=== PATIENT | male | born 1995 | race Caucasian/White ===

== ENCOUNTER 2017-08-14 13:56 | Emergency (ER) | payer BC ==
[2017-08-14 15:56] VITALS: BP 153/91
--- NOTE | 2017-08-14 16:09 | UC ---
Respiratory Complaint HPI - HPI Summary HPI Summary: 1 week of uri, some chills mostly unresolved nasal congestion but no sinus pain or pressure - History of Current Complaint Chief Complaint: UCRespiratory Stated Complaint: ACHY,COLD SXS Time Seen by Provider: 08/14/17 16:01 Hx Obtained From: Patient Onset/Duration: Gradual Onset, Lasting Days - 7, Still Present Timing: Constant Severity Initially: Moderate Severity Currently: Moderate Aggravating Factors: Nothing Alleviating Factors: Nothing - trying cold and sinus medicine Associated Signs And Symptoms: Positive: URI, Nasal Congestion. Negative: Sinus Discomfort - Allergies/Home Medications Allergies/Adverse Reactions: Allergies Allergy/AdvReac Type Severity Reaction Status Date / Time No Known Allergies Allergy Verified 08/14/17 15:47 Home Medications: Home Medications Phenylephrine-Chlorpheniramine [[place] Plus Cold & 5-2-10-325 mg] 1 cap PO PRN 08/14/17 [History] buPROPion TAB* [Wellbutrin TAB*] 300 mg PO DAILY 08/14/17 [History Confirmed ] busPIRone TAB* [Buspar TAB*] 5 mg PO BID PRN 08/14/17 [History Confirmed ] PMH/Surg Hx/FS Hx/Imm Hx Previously Healthy: Yes Other History Of: Negative For: HIV - Surgical History Surgical History: Yes Surgery Procedure, Year, and Place: b/l feet, r elbow, - Family History Known Family History: Positive: None, Hypertension, Other - gall bladder [place] - Social History 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: 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-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, 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 Lives: With Family Alcohol Use: None Substance Use Type: Marijuana Substance Use Comment - Amount & Last Used: less than a gram every day; last use was 01/12/16 Smoking Status (MU): Never Smoked Tobacco - Immunization History Most Recent Tetanus Shot: utd Hx Tetanus, Diphtheria Vaccination: Yes Vaccination Up to Date: Yes Review of Systems Constitutional: Chills, Fatigue Skin: Negative Eyes: Negative ENT: Nasal Discharge Respiratory: Negative Cardiovascular: Negative Gastrointestinal: Negative Genitourinary: Negative Motor: Negative Neurovascular: Negative Musculoskeletal: Negative Neurological: Negative Psychological: Negative Is Patient Immunocompromised?: No All Other Systems Reviewed And Are Negative: Yes Physical Exam Triage Information Reviewed: Yes Appearance: No Pain Distress, Well-Nourished, Ill-Appearing - mild Vital Signs: Initial Vital Signs Temp 98.3 F 08/14/17 15:50 Pulse 96 08/14/17 15:50 Resp 18 08/14/17 15:50 BP 153/91 08/14/17 15:50 Pulse Ox 98 08/14/17 15:50 Vital Signs Reviewed: Yes Eye Exam: Normal Eyes: Positive: Conjunctiva Clear ENT Exam: Normal ENT: Positive: Normal ENT inspection, Hearing grossly normal, Pharynx normal, Nasal congestion, Nasal drainage, TMs normal, Uvula midline. Negative: Tonsillar swelling, Tonsillar exudate, Trismus, Muffled voice, Hoarse voice, Dental tenderness, Sinus tenderness Dental Exam: Normal Neck exam: Normal Neck: Positive: Supple, Nontender, No Lymphadenopathy Respiratory Exam: Normal Respiratory: Positive: Chest non-tender, Lungs clear, Normal breath sounds, No respiratory distress, No accessory muscle use Cardiovascular Exam: Normal Cardiovascular: Positive: RRR, No Murmur, Pulses Normal, Brisk Capillary Refill Musculoskeletal Exam: Normal Musculoskeletal: Positive: Strength Intact, ROM Intact, No Edema Neurological Exam: Normal Neurological: Positive: Alert, Muscle Tone Normal Psychological Exam: Normal Skin Exam: Normal UC Diagnostic Evaluation - Laboratory O2 Sat by Pulse Oximetry: 98 Respiratory Course/Dx - Course Course Of Treatment: Afrin nasal spray for quick releif of symptoms and flonase for longer term use - Differential Dx/Diagnosis Provider Diagnoses: Rhinnosinusitis, high blood pressure without diagnosis of hypertension Discharge - Discharge Plan Condition: Stable Disposition: HOME Prescriptions: Fluticasone NASAL SPRAY 50MCG* [Flonase NASAL SPRAY 50MCG*] 2 spray BOTH NARES DAILY #1 btl Patient Education Materials: Oxymetazoline (Into the nose), Upper Respiratory Infection (ED), Rhinosinusitis (ED), Hypertension (ED), How to Use Nasal [place] ( ED) Referrals: Param Jean MD [Primary Care Provider] - 2 Weeks
== END 2017-08-14 16:19 | disposition home or self-care (01) ==
LOC: UCCORT 13:56
DX: J32.9 Chronic sinusitis, unspecified (principal); R03.0 Elevated blood-pressure reading, without diagnosis of hypertension
CPT/HCPCS: 99212; G0463

== ENCOUNTER 2017-12-28 07:50 | Emergency (ER) | payer BC ==
--- OUTSIDE RECORDS SUMMARY | 2017-12-28 08:03 | XMS REPORT ---
:1995 External Reference #:[id number] Author Organization [facility] Address [address], [address] [place] [address] Phone [phone] Care Team Providers Name Role Phone Diane Jackson, BRIGETTE, SANIA, Ibliza Care Team Information Awning Spreader Unavailable Diane Jackson, BRIGETTE, SANIA, Ibclc Primary Care Physician Unavailable Payers Type Date Identification Numbers Payment Provider Subscriber Commercial Policy Number: [id number] Tammy Thorpe PayID: [id number] [address] [address] [place] [address] Problems Date Description Provider Status Onset: 09/09/2003 Fall from one level to another Active Onset: 09/09/2003 Closed supracondylar fracture of humerus Active Family History Date Family Member(s) Problem(s) Comments Father No Current Problems Mother No Current Problems Paternal Grandfather due to Cancer () - gallbladder Paternal Grandmother Unknown : (age Maternal Grandfather due to Lung 59 Years) Cancer Maternal Grandmother Unknown Social History Type Date Description Comments Lives With Parents Diet Patient follows no dietary avoids milk due to GI issues restrictions 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[employer] - [employer] Cigarette Use Never Smoked Cigarettes ETOH Use Denies alcohol use Smoking Patient is a current smoker, smokes [place] 2-3x a day every day Allergies, Adverse Reactions, Alerts Date Description Reaction Status Severity Comments 01/31/2017 NKDA active Medications Medication Date Status Form Strength Qnty SIG Indications Ordering Provider Bupropion HCL 11/21/ Active Tablets ER 150mg 60tabs 1 by F41.9 Diane Jackson, ER (SR) 2018 12HR mouth PNP-BC, ELECTRICAL SYSTEMS DESIGN ENGINEER, twice a Ibclc day Buspirone HCL 06/09/ Active Tablets 5mg 60tabs take 1-2 F41.9 Héctor 2017 tablet Clune, ELECTRICAL SYSTEMS DESIGN ENGINEER by mouth three times a day Bupropion HCL 06/07/ Hx Tablets ER 300mg 30tabs 1 by F41.9 Diane Jackson , ER (XL) 2017 - 24HR mouth PNP-BC, ELECTRICAL SYSTEMS DESIGN ENGINEER, 11/21/ every Ibclc 2018 day Wellbutrin XL 03/29/ Hx Tablets ER 150mg 60tabs 1 by F41.9 Diane Jackson , 2017 - 24HR mouth PNP-BC, ELECTRICAL SYSTEMS DESIGN ENGINEER, 06/07/ every Ibclc 2017 day Cephalexin 01/02/ Hx Tablets 250mg 10tabs take one Gordo Moraes, 2007 - tablet MD 01/31/ po bid x 2016 5 days. Sertraline / Hx Tablets 25mg 1 by Unknown HCL 0000 - mouth 03/29/ every 2016 day Acidophilus / Hx Capsules 100mg 1 by Unknown Probiotic 0000 - mouth 07/21/ twice a 2017 day x 2 month Ibuprofen / Hx Capsules 200mg as Unknown 0000 - needed 2017 Immunizations CPT Code Status Date Vaccine Lot # [id number] Given 06/09/2017 Influenza Virus Vaccine, Quadrivalent, Slit Virus, [id number] Im Use [id number] Given 03/27/2013 Tdap injection U-HPV Given 11/15/2011 HPV,Unspecified U-HPV Given 07/05/2011 HPV,Unspecified U-HPV Given 04/22/2011 HPV,Unspecified Vital Signs Date Vital Result Comment 12/04/2017 BP Systolic 118 mmHg BP Diastolic 80 mmHg Body Temperature 98.0 F Heart Rate 88 /min Respiratory Rate 17 /min Height 69 inches 5'9" Weight 163.00 lb BMI (Body Mass Index) 24.1 kg/m2 BSA (Body Surface Area) 1.89 m2 [place] body weight in kilograms 73 O2 % BldC Oximetry 97 % 11/21/2017 BP Systolic 122 mmHg BP Diastolic 74 mmHg Body Temperature 98.1 F Heart Rate 108 /min Respiratory Rate 17 /min Height 69 inches 5'9" Weight 166.00 lb BMI (Body Mass Index) 24.5 kg/m2 BSA (Body Surface Area) 1.91 m2 [place] body weight in kilograms 73 O2 % BldC Oximetry 96 % 10/23/2017 BP Systolic Sitting Left Arm 118 mmHg BP Diastolic Sitting Left Arm 72 mmHg Height 69 inches 5'9" Weight 165.00 lb BMI (Body Mass Index) 24.4 kg/m2 BSA (Body Surface Area) 1.90 m2 [place] body weight in kilograms 73 09/07/2017 BP Systolic Sitting Left Arm 114 mmHg BP Diastolic Sitting Left Arm 74 mmHg Heart Rate 88 /min Respiratory Rate 18 /min Height 69 inches 5'9" Weight 164.50 lb BMI (Body Mass Index) 24.3 kg/m2 BSA (Body Surface Area) 1.90 m2 [place] body weight in kilograms 73 07/21/2017 BP Systolic Sitting Left Arm 118 mmHg BP Diastolic Sitting Left Arm 76 mmHg Heart Rate 80 /min Respiratory Rate 18 /min Height 69 inches 5'9" Weight 165.00 lb BMI (Body Mass Index) 24.4 kg/m2 BSA (Body Surface Area) 1.90 m2 [place] body weight in kilograms 73 06/09/2017 BP Systolic Sitting Left Arm 126 mmHg BP Diastolic Sitting Left Arm 76 mmHg Heart Rate 88 /min Respiratory Rate 18 /min Height 69 inches 5'9" Weight 171.38 lb BMI (Body Mass Index) 25.3 kg/m2 BSA (Body Surface Area) 1.93 m2 [place] body weight in kilograms 73 05/01/2017 BP Systolic 116 mmHg BP Diastolic 74 mmHg Heart Rate 79 /min Height 69 inches 5'9" Weight 180.00 lb BMI (Body Mass Index) 26.6 kg/m2 BSA (Body Surface Area) 1.98 m2 [place] body weight in kilograms 73 03/29/2017 BP Systolic 140 mmHg BP Diastolic 84 mmHg Body Temperature 97.1 F Heart Rate 67 /min Height 69 inches 5'9" Weight 178.00 lb BMI (Body Mass Index) 26.3 kg/m2 BSA (Body Surface Area) 1.97 m2 [place] body weight in kilograms 73 01/31/2017 BP Systolic Sitting Left Arm 117 mmHg BP Diastolic Sitting Left Arm 78 mmHg Heart Rate 66 /min Height 69 inches 5'9" Weight 177.00 lb BMI (Body Mass Index) 26.1 kg/m2 BSA (Body Surface Area) 1.96 m2 [place] body weight in kilograms 73 05/18/2009 Height 60 inches 5'0" Weight 117.00 lb 04/30/2008 Height 58 inches 4'10" Weight 114.00 lb 11/14/2007 Height 57 inches 4'9" Weight 110.00 lb 08/07/2007 Height 56 inches 4'8" Weight 108.00 lb BSA (Body Surface Area) 1.37 m2 Height Percentile 12 % Weight Percentile 76th 07/16/2007 Height 56 inches 4'8" Weight 108.00 lb Results Test Date Test Result H/L Range Note HIV Screen 4TH 09/07/2017 HIV Screen 4th Non Reactive Non Reactive 1, 2 Gen Reflex Generation wRfx Chlamydia/GC Mer[place], 09/07/2017 Chlamydia Negative Negative 1 Urine Trachomatis,Ur -PCR Neisseria Gonorrhoeae,Ur -PCR Negative Negative 1, 3 Comprehensive Metabolic Panel 01/09/2017 Glucose 118 mg/dL High 74-106 4 BUN 8 mg/dL 7-18 4 Creatinine 1.1 mg/dL 0.6-1.3 4 Glom Filtration Rate, Estimate >60 mL/min >60 4 If >60 mL/min >60 4, 5 BUN/Creat 7.2 ratio 4 Sodium 141 mmol/L 136-145 4 Potassium 3.6 mmol/L 3.5-5.1 4 Chloride 107 mmol/L 98-107 4 Carbon Dioxide 27 mmol/L 21-32 4 Anion Gap 7 mEq/L Low 8-16 4 Calcium 9.6 mg/dL 8.5-10.1 4 Total Protein 8.0 g/dL 6.4-8.2 4 Albumin 4.5 g/dL 3.4-5.0 4 Globulin 3.5 g/dL 1.9-4.3 4 Alb/Glob 1.3 ratio 4 Bilirubin,Total 0.8 mg/dL 0.2-1.0 4 Sgot/Ast 21 U/L 15-37 4 SGPT/Alt 50 U/L 12-78 4 Alkaline Phosphatase 57 U/L 45-117 4 Laboratory test finding 01/09/2017 C-Reactive Protein,Quant 6.2 mg/L High <3.0 4 CBS W/Automated Diff 01/09/2017 White Blood Count 8.2 K/uL 3.4-10.5 4 Red Blood Count 5.27 M/uL 4.20-5.80 4 Hemoglobin 15.5 gm/dL 12.8-17.0 4 Hematocrit 46.9 % 38.0-48.0 4 Mean Cell Volume 89.0 fl 80.0-96.0 4 Mean Corpuscular HGB 29.4 pg 27.0-33.0 4 Mean Corpuscular HGB Conc 33.0 g/dL 31.7-36.0 4 Platelet Count 295 K/uL 150-400 4 Red Cell Distri Width SD 40.9 fl 36-51 4 Red Cell Distri Width %CV 12.7 % 11.6-15.8 4 Mean Platelet Volume 9.3 fL 6.6-10.6 4 Neut% 47.2 % 33.0-73.0 4 Lymph % 36.5 % 20.0-42.0 4 [place] % 12.5 % High 0.0-10.0 4 Eo% 3.4 % 0.0-6.6 4 Bas% 0.4 % 0.0-1.1 4 Neut# 3.89 K/uL 1.8-7.0 4 Lymph # 3.01 K/uL 1.0-4.0 4 [place] # 1.03 K/uL High 0.0-0.8 4 Eos # 0.28 K/uL 0.0-0.5 4 Baso # 0.03 K/uL 0.0-0.1 4 Laboratory test finding 01/08/2017 C-Reactive Protein,Quant 15.1 mg/L High <3.0 4 Sedimentation Rate 3 mm/hr 0-15 4, 6 Laboratory test 01/07/2017 C-Reactive Protein,Quant 9.3 mg/L High <3.0 4 finding Laboratory test 01/07/2017 Sedimentation Rate 2 mm/hr 0-15 4, 7 finding 1 Z00.00 2 Performed at: RN - [facility] [address] [id number] Square Cutter: Dolly Colon MD, Phone: [phone] 3 A negative result for either C. trachomatis and/or N. gonorrhoeae does not preclued an infection because results are dependent on adequate specimen collection, absence of inhibitors, and sufficient DNA to be detected. 4 CAT BITE R HAND, LYMPHANGITIS 5 Note: Persistent reduction for 3 months or more in an eGFR <60 mL/min/1.73 m2 defines CKD. Patients with eGFR values >/=60 mL/min/1.73 m2 may also have CKD if evidence of persistent proteinuria is present. The original MDRD equation for estimated GFR is not valid for patients less than 18 years of age. Additional information may be found at www.kdoqi.org. 6 Method: Sediplast Modified Westergren 7 Method: Sediplast Modified Westergren Procedures Date CPT Code Description Status 12/04/2017 12895 Brief Emotional/Behav Assessment W/ Scoring Doc Per Completed Standard Inst 11/21/2017 76559 Brief Emotional/Behav Assessment W/ Scoring Doc Per Completed Standard Inst 10/23/2017 45093 Brief Emotional/Behav Assessment W/ Scoring Doc Per Completed Standard Inst 01/31/2017 63788 X-Ray Knee Complete W/Obliques & Tunnel And/Or Completed Standing Views 01/31/2017 94820 Radiology, Distal Femur--Knee 1 Or 2 Views Completed 01/31/2017 05290 Radiology, Distal Femur--Knee 1 Or 2 Views Completed 11/19/2007 27501 Reconstruction Post Tibial Tendon W/Excision Accessory Completed Navicular 08/13/2007 44709 Reconstruction Post Tibial Tendon W/Excision Accessory Completed Navicular Encounters Type Date Location Provider CPT E/M Dx Office Visit 12/04/2017 1:00p Family Medicine BRIGETTE Sanchez, 55099 F41.9 ELECTRICAL SYSTEMS DESIGN ENGINEER, Ibclc F33.1 Office Visit 11/21/2017 11:30a Family Medicine BRIGETTE Sanchez, ELECTRICAL SYSTEMS DESIGN ENGINEER, 26874 F41.9 Ibclc Office Visit 10/23/2017 1:15p Family Medicine BRIGETTE Sanchez, ELECTRICAL SYSTEMS DESIGN ENGINEER, 92615 F33.1 Ibclc F41.9 Office Visit 09/07/2017 8:30a Family Medicine SANIA Tan 92696 Z00.00 F41.9 Office Visit 07/21/2017 11:15a Family Medicine SANIA Tan 26335 F41.9 Office Visit 06/09/2017 2:00p Family Medicine SANIA Tan 21189 F41.9 Z23 Office Visit 05/01/2017 11:15a Family Medicine BRIGETTE Sanchez, 40839 F41.9 ELECTRICAL SYSTEMS DESIGN ENGINEER, Ibclc Office Visit 03/29/2017 11:00a [facility] BRIGETTE Sanchez, 66547 F41.9 ELECTRICAL SYSTEMS DESIGN ENGINEER, Ibclc Office Visit 01/31/2017 10:30a [facility] Office Patricio Hinkle, 12351 M25.561 Baron Plan of Care Future Appointment(s):03/12/2018 1:00 pm - BRIGETTE Sanchez, ELECTRICAL SYSTEMS DESIGN ENGINEER, Ibclc at [facility]
[2017-12-28 08:13] VITALS: BP 139/84
--- NOTE | 2017-12-28 08:55 | UC ---
Abdominal Pain Male HPI - HPI Summary HPI Summary: 22 yo male with the onset of epigastric abd pain and vomiting last PM heartburn kept him up last pm no f/c no URI symptoms no NSAID use No etoh states he feels stressed - History of Current Complaint Chief Complaint: UCGI Stated Complaint: HEARTBURN, STOMACH COMPLAINT Time Seen by Provider: 12/28/17 08:47 Hx Obtained From: Patient Onset/Duration: Sudden Onset, Lasting Hours Timing: Constant Severity Initially: Moderate Severity Currently: Mild Pain Intensity: 4 Pain Scale Used: 0-10 Numeric Location: Epigastric Character: Other - burning Aggravating Factor(s): Nothing Alleviating Factor(s): Nothing Associated Signs And Symptoms: Positive: Nausea, Vomiting, Diarrhea - daily - had colonscopy a yr ago - Allergies/Home Medications Allergies/Adverse Reactions: Allergies Allergy/AdvReac Type Severity Reaction Status Date / Time No Known Allergies Allergy Verified 12/28/17 08:06 PMH/Surg Hx/FS Hx/Imm Hx Previously Healthy: Yes Psychological History: Anxiety Other History Of: Negative For: HIV - Surgical History Surgical History: Yes Surgery Procedure, Year, and Place: b/l feet, r elbow, - Family History Known Family History: Positive: Hypertension, Other - gall bladder [place] - Social History Alcohol Use: None Substance Use Type: Marijuana Substance Use Comment - Amount & Last Used: less than a gram every day; last use was last night Smoking Status (MU): Never Smoked Tobacco - Immunization History Most Recent Tetanus Shot: utd Hx Tetanus, Diphtheria Vaccination: Yes Vaccination Up to Date: Yes Review of Systems Cardiovascular: Chest Pain - sscp (burning) during the night Gastrointestinal: Abdominal Pain, Vomiting, Nausea Motor: Negative Neurovascular: Negative Musculoskeletal: Negative Neurological: Negative Psychological: Negative Is Patient Immunocompromised?: No All Other Systems Reviewed And Are Negative: Yes Physical Exam Triage Information Reviewed: Yes Appearance: Well-Appearing, No Pain Distress, Well-Nourished, Thin Vital Signs: Initial Vital Signs Temp 100 F 12/28/17 08:07 Pulse 86 12/28/17 08:07 Resp 16 12/28/17 08:07 BP 139/84 12/28/17 08:07 Pulse Ox 100 12/28/17 08:07 Eyes: Positive: Conjunctiva Clear ENT: Positive: Hearing grossly normal, Other - moist MM. Negative: Nasal congestion, Nasal drainage, Trismus, Muffled voice, Hoarse voice, Dental tenderness Dental Exam: Normal Neck: Positive: Supple, Nontender, No Lymphadenopathy Respiratory: Positive: Lungs clear, Normal breath sounds, No respiratory distress, No accessory muscle use Cardiovascular: Positive: RRR, No Murmur Abdomen Description: Positive: Nontender, No Organomegaly, Soft. Negative: CVA Tenderness (R), CVA Tenderness (L) Bowel Sounds: Positive: Present Musculoskeletal: Positive: ROM Intact, No Edema Neurological: Positive: Alert Psychological Exam: Normal Psychological: Positive: Decreased Age Appropriate Behavior Abd Pain Male Course/Dx - Differential Dx/Clinical Impression Provider Diagnoses: acute gastritis Discharge - Sign-Out/Discharge Documenting (check all that apply): Discharge - Discharge Plan Condition: Stable Disposition: HOME Prescriptions: Omeprazole 20 mg PO DAILY #14 capsule. Ondansetron TAB* [Zofran Tab*] 4 mg PO Q6H PRN #10 tab PRN Reason: Nausea Patient Education Materials: Gastritis (ED) Forms: *School Release Referrals: Diane Jackson NP [Primary Care Provider] - As Soon As Possible Additional Instructions: recheck for new or worsening symptoms see your MD first available appt - Billing Disposition and Condition Condition: STABLE Disposition: HOME
== END 2017-12-28 09:06 | disposition home or self-care (01) ==
LOC: UCCORT 07:50
DX: K29.00 Acute gastritis without bleeding (principal)
CPT/HCPCS: 99212; G0463

== ENCOUNTER 2018-02-12 09:13 | Emergency (ER) | payer BC ==
[2018-02-12 09:38] VITALS: BP 125/81
--- NOTE | 2018-02-12 10:17 | UC ---
Throat Pain/Nasal Liu HPI - HPI Summary HPI Summary: 22 yo gentleman c/o scratchy throat, seemed like allergy sx a little over a week. Last couple days worse, yesterday noted sores on back of throat, prompting visit today. Without yamileth fever. + tired. No rash. Minimal cough , minimal congestion. No abd pain / discomfort. No b/b sx reported. No known hx mononucleosis. + Canker sores earlier in the week, resolved now. - History of Current Complaint Chief Complaint: UCGeneralIllness Stated Complaint: ST Time Seen by Provider: 02/12/18 09:52 Hx Obtained From: Patient Pain Intensity: 6 - Allergies/Home Medications Allergies/Adverse Reactions: Allergies Allergy/AdvReac Type Severity Reaction Status Date / Time No Known Allergies Allergy Verified 02/12/18 09:38 Home Medications: Home Medications Bupropion XL* [Wellbutrin XL *] 300 mg PO DAILY 02/12/18 [History Confirmed ] FLUoxetine CAP* [PROzac CAP*] 20 mg PO DAILY 02/12/18 [History Confirmed ] risperiDONE [Risperidone] 0.25 mg PO BID 02/12/18 [History Confirmed 02/12/18] PMH/Surg Hx/FS Hx/Imm Hx Previously Healthy: Yes Other History Of: Negative For: HIV - Surgical History Surgical History: Yes Surgery Procedure, Year, and Place: b/l feet, r elbow, - Family History Known Family History: Positive: None, Hypertension, Other - gall bladder [place] - Social History Alcohol Use: None Substance Use Type: Marijuana Substance Use Comment - Amount & Last Used: less than a gram every day; last use was last night Smoking Status (MU): Never Smoked Tobacco - Immunization History Most Recent Tetanus Shot: utd Hx Tetanus, Diphtheria Vaccination: Yes Vaccination Up to Date: Yes Review of Systems Constitutional: Other - see hpi Skin: Negative Eyes: Negative ENT: Sore Throat Respiratory: Negative Cardiovascular: Negative Gastrointestinal: Negative Genitourinary: Negative Motor: Negative Neurovascular: Negative Musculoskeletal: Negative Neurological: Negative Psychological: Negative Is Patient Immunocompromised?: No All Other Systems Reviewed And Are Negative: Yes Physical Exam Triage Information Reviewed: Yes Appearance: Well-Nourished - sitting up, conversing in full sentances, without difficulty Vital Signs: Initial Vital Signs Temp 98.7 F 02/12/18 09:33 Pulse 86 02/12/18 09:33 Resp 18 02/12/18 09:33 BP 125/81 02/12/18 09:33 Pulse Ox 100 02/12/18 09:33 Vital Signs Reviewed: Yes Eye Exam: Normal ENT: Positive: Pharyngeal erythema - + post pharyngeal sores, no yamileth exudates. + post pharyngeal redness. Uvula midline. Airway patent, no stridor. Tongue unremarkable., TM dull - dull au tm Neck exam: Normal Neck: Positive: Supple, Nontender Respiratory Exam: Normal Respiratory: Positive: Chest non-tender, Lungs clear, Normal breath sounds, No respiratory distress Cardiovascular Exam: Normal Cardiovascular: Positive: RRR, No Murmur, Pulses Normal, Brisk Capillary Refill Abdominal Exam: Normal Abdomen Description: Positive: Nontender, No Organomegaly Bowel Sounds: Positive: Present Musculoskeletal Exam: Normal - gait steady, moves x 4 ext Neurological Exam: Normal - grossly nonfocal Psychological Exam: Normal - conversing easily and appropriately Skin Exam: Normal - non-diaphoretic. no visible or reported rash Throat Pain/Nasal Course/Dx - Course Course Of Treatment: RST neg. Likely viral syndrome. Will check re possible mononucleosis. Pt agrees. Recommend f/u if possible with pcp. Questions as posed answered to the best of my ability. - Differential Dx/Diagnosis Provider Diagnoses: Pharyngitis Discharge - Sign-Out/Discharge Documenting (check all that apply): Discharge/Admit/Transfer - Discharge Plan Condition: Stable Disposition: HOME Patient Education Materials: Pharyngitis (ED), Viral Syndrome (ED) Referrals: Diane Jackson NP [Primary Care Provider] - Additional Instructions: Drink plenty of water. Follow up with your primary care phyisician next couple weeks for recheck. Seek medical attention for worse or new problems in the meantime. - Billing Disposition and Condition Condition: STABLE Disposition: HOME
[2018-02-12 13:44] LABS: ABS Basophils 0 10^3/ul (0-0.2); ABS Eosinophils 0.2 10^3/ul (0-0.6); ABS Lymphocytes 1.4 10^3/ul (1.0-4.8); ABS Monocytes 0.6 10^3/ul (0-0.8); ABS Neutrophils 2.9 10^3/ul (1.5-7.7); ABS Nucleated RBC 0 10^3/ul; Eosinophil % 4.9 % (0-6); Hematocrit 44 % (42-52); Hemoglobin 14.7 g/dl (14.0-18.0); Lymphocyte % 27.2 % (25-47); Mean Corpuscular HGB Conc 33 g/dl (31-36); Mean Corpuscular Hemoglobin 30 pg (27-31); Mean Corpuscular Volume 89 fL (80-94); Nucleated Red Blood Cells % 0; Platelet Count 259 10^3/ul (150-450); Red Blood Count 4.92 10^6/ul (4.0-5.4); Red Cell Distribution Width 13 % (10.5-15); White Blood Count 5.1 10^3/ul (3.5-10.8)
[2018-02-12 14:06] LABS: EGFR Non-African American 124.5 (>60)
== END 2018-02-12 10:25 | disposition home or self-care (01) ==
LOC: UCCORT 09:13
DX: J02.9 Acute pharyngitis, unspecified (principal)
CPT/HCPCS: 36415; 80053; 85025; 86308; 86664; 86665; 87651; 99211; G0463

== ENCOUNTER 2018-06-17 14:10 | Emergency (ER) | payer BC, OTHER ==
[2018-06-17 14:57] VITALS: BP 134/84
--- NOTE | 2018-06-17 15:46 | UC ---
Bite Injury/Animal HPI - HPI Summary HPI Summary: Pt presents with c/o "dog bite to right posterior calf and left hand.Pt was attacked by dog at dog's home. Attack was unprovoked. Dog progressive care unit registered nurse on premises and gave all vaccination information. Do g is UTD with all vaccinations. Pt states he is UTD with tetanus vaccine. - History of Current Complaint Chief Complaint: UCBiteInjury Stated Complaint: WC - DOG BITE Time Seen by Provider: 06/17/18 15:36 Hx Obtained From: Patient Severity Currently: Moderate Severity Initially: Mild Pain Intensity: 0 Onset/Duration: Sudden Onset, Still Present Type of Bite: Pet Has Animal Been Immunized?: Yes Character: Abrasion/Laceration Associated Signs And Symptoms: Positive: Negative Hx of Bite: Unprovoked Animal Available for Observation: Yes - Risk Factors Infection/Sepsis Risk Factors: Negative - Allergies/Home Medications Allergies/Adverse Reactions: Allergies Allergy/AdvReac Type Severity Reaction Status Date / Time No Known Allergies Allergy Verified 06/17/18 14:50 Home Medications: Home Medications Desloratidine (NF) [Clarinex (NF)] 5 mg PO DAILY 06/17/18 [History Confirmed ] PMH/Surg Hx/FS Hx/Imm Hx Previously Healthy: Yes Other History Of: Negative For: HIV - Surgical History Surgical History: Yes Surgery Procedure, Year, and Place: b/l feet, L elbow, - Family History Known Family History: Positive: Hypertension, Other - gall bladder CA - Social History Occupation: Student Lives: With Family Alcohol Use: None Substance Use Type: None Substance Use Comment - Amount & Last Used: less than a gram every day; last use was last night Smoking Status (MU): Never Smoked Tobacco Have You Smoked in the Last Year: No - Immunization History Most Recent Tetanus Shot: within past 10 years Hx Tetanus, Diphtheria Vaccination: Yes Vaccination Up to Date: Yes Review of Systems Constitutional: Negative Skin: Other - laceration, abrasions from dog attack. Eyes: Negative ENT: Negative Respiratory: Negative Cardiovascular: Negative Gastrointestinal: Negative Genitourinary: Negative Motor: Negative Neurovascular: Negative Musculoskeletal: Negative Neurological: Negative Psychological: Negative Is Patient Immunocompromised?: No All Other Systems Reviewed And Are Negative: Yes Physical Exam Triage Information Reviewed: Yes Appearance: Well-Appearing Vital Signs: Initial Vital Signs Temp 98.8 F 06/17/18 14:51 Pulse 104 06/17/18 14:51 Resp 15 06/17/18 14:51 BP 134/84 06/17/18 14:51 Pulse Ox 99 06/17/18 14:51 Vital Signs Reviewed: Yes Eye Exam: Normal ENT: Positive: Hearing grossly normal Dental Exam: Normal Neck exam: Normal Respiratory: Positive: No respiratory distress Musculoskeletal Exam: Normal Musculoskeletal: Positive: Strength Intact Neurological Exam: Normal Psychological Exam: Normal Skin Exam: Other - multiple abrasions, linear, and puncture wounds, on right posterior lower extremity and left hand. Bleeding controlled Bite Injury Course/Dx - Differential Dx/Diagnosis Differential Diagnosis/HQI/PQRI: Laceration, Puncture, Superficial Infection, Deep Space Infection Provider Diagnoses: dog bite Discharge - Sign-Out/Discharge Documenting (check all that apply): Patient Departure All imaging exams completed and their final reports reviewed: No Studies - Discharge Plan Condition: Stable Disposition: HOME Prescriptions: Amoxicillin/Clavulanate TAB* [Augmentin TAB 500 mg*] 500 mg PO Q12H #14 tab Patient Education Materials: Animal Bite (ED) Referrals: Diane Jackson NP [Primary Care Provider] - If Needed Additional Instructions: Please follow up as soon as possible with your PCP regarding your tetanus status and if symptoms worsen. - Billing Disposition and Condition Condition: STABLE Disposition: Home
== END 2018-06-17 15:58 | disposition home or self-care (01) ==
LOC: UCCORT 14:10
DX: S81.851A Open bite, right lower leg, initial encounter (principal); S61.452A Open bite of left hand, initial encounter; W54.0XXA Bitten by dog, initial encounter; Y93.9 Activity, unspecified; Y92.009 Unspecified place in unspecified non-institutional (private) residence as the place of occurrence of the external cause; Y99.0 Civilian activity done for income or pay
CPT/HCPCS: 99212; G0463